=== PATIENT | male | born 1940 | race Caucasian/White ===

== ENCOUNTER → 2018-03-10 | Outpatient (CLI) | payer MEDICARE, MEDICAID ==
[2016-07-28 12:53] VITALS: BMI 27.1
[~2018-03-10] MED LIST: ABILIF5PT PO; ACET-1966 PO; ACET-2031 PO; ACET-2043 PO; ARIP10TA4 PO; ARTO15 OD; ASPI-1471 PO; ASPI-757 PO; BENZ1 PO; CA C1TAB6 PO; CALC-1173 PO; CALC-515 PO; CALC-634 PO; CALC-635 PO; CALC300T5 PO; CEFU250T11 PO; CHOL1CRY4 PO; CIPR-344 PO; CIPR-345 PO; CLOT15CR63 TP; DEXT15DR16 OP; ETOD-1 PO; FLU150 PO; FLUN25SP NS; GABA-549 PO; HYDR-2966 PO; IBUP-56 PO; LAMO200T45 PO; LAMO25TA60 PO; LAMOT150PT PO; LEVO50TA86 PO; LEVO75TA68 PO; LITC450 PO; LOPE1TAB PO; LOPE2CAP88 PO; LOSA100T69 PO; LOSA50TA74 PO; LURA20TA PO; MAG-65 PO; METF-450 PO; METF500T4 PO; MIRT-18 PO; MIRT-25 PO; MOM PO; MULT-865 PO; NIC10R INH; NICO4LOZ35 BC; OMEP-125 PO; OMEP-137 PO; POLY17PO21 PO; POLY17PO25 PO; POLY500P2 MC; PSYL0.5234 PO; SULF-198 PO; TAMS0.4C70 PO; TETR12.52 PO; TRAM-420 PO; TRAZ50TA34 PO; VENL75CA58 PO; ZOLP-360 PO; [UNRECOGNIZED DRUG - CODE] BC; [UNRECOGNIZED DRUG - CODE] PO; [UNRECOGNIZED DRUG - CODE] PO; [UNRECOGNIZED DRUG - CODE] PO; [UNRECOGNIZED DRUG - CODE] PO
== END ==
LOC: ZZSPRING 00:48
DX: R97.20 Elevated prostate specific antigen [PSA] (principal)
CPT/HCPCS: 36415; 84153

== ENCOUNTER 2018-04-24 16:59 | Emergency (ER) | payer MEDICARE, MEDICAID ==
[2016-07-28 12:53] VITALS: Wt 124.7 kg
[~2018-04-24 16:59] MED LIST changes: +POLY17PO11 PO; -POLY17PO21 PO
--- NOTE | 2018-04-24 17:07 | ER Report ---
History and Physical Time Seen By : 17:08 HPI/ROS CHIEF COMPLAINT: Depression HISTORY OF PRESENT ILLNESS: 77-year-old male patient presents to emergency room with complaint of depression. Patient states that he is a resident at [facility]. He states that he has not been sleeping. He states that he is not having any suicidal ideation. Patient states he believes that he needs to be admitted to behavioral health to get his medications changed and given so he can sleep better. I did receive a call and report from the nurse at [facility]. He states that patient was having suicidal ideation. When asked the patient denies this adamantly. He denies having any nausea, vomiting, diarrhea. He states he is not having any pain at this time. REVIEW OF SYSTEMS: Respiratory: No cough, no dyspnea. Cardiovascular: No chest pain, no palpitations. Gastrointestinal: No vomiting, no abdominal pain. Musculoskeletal: No back pain. Allergies: Coded Allergies: codeine (Verified Allergy, Unknown, 08/09/16) Home Meds Active Scripts Calcium Carbonate/Vitamin D3 (CALCIUM 600 + VIT D 400 TABLET) 1 Each Tablet, 1 EACH PO BID, #180 TAB 4 Refills Prov:NELY COLLIER APRN-C 05/30/17 Metformin Hcl (METFORMIN HCL ER) 500 Mg Tab.er.24, 1 TAB PO QHS, #30 TAB 5 Refills Prov:NELY COLLIER APRN-C 02/07/17 Levothyroxine Sodium (LEVOTHYROXINE SODIUM) 50 Mcg Tablet, 50 MCG PO QDAY, #30 TAB 6 Refills Prov:NELY COLLIER APRN-Paul 11/13/16 Lamotrigine (LAMOTRIGINE) 200 Mg Tablet, 1 TAB PO DAILY, #30 TAB 5 Refills Prov:CHANTELL GARLAND MD 10/22/16 Losartan Potassium (LOSARTAN POTASSIUM) 100 Mg Tablet, 1 TAB PO QDAY, #30 TAB 6 Refills Prov:CHANTELL GARLAND MD 08/29/16 Dextran/Hypromellose/Glycerin (TEARS NATURALE FORTE DROPS) 15 Ml Drops, 1 BOTTLE OP PRN, #1 BOT 3 Refills Prov:NELY COLLIER APRN-C 04/10/16 Aspirin (ASPIR 81) 81 Mg Tablet., 1 TAB PO MON,WED,FRI, #36 TAB 1 Refill Prov:MYRNAYASIR SARABIADAVID WYLIE FILTER PRESS PUMPER-C 04/10/16 Omeprazole (OMEPRAZOLE) 20 Mg Tablet.dr, 1 TAB PO FRI,FRI,FRI, #36 CAP 1 Refill Prov:NELY COLLIER DEJAN FILTER PRESS PUMPER-C 04/10/16 Reported Medications Ibuprofen (IBUPROFEN) 200 Mg Tablet, 1-2 TAB PO Q6H PRN for PAIN, TAB 04/24/18 Lurasidone Hcl (LATUDA) 20 Mg Tablet, 20 MG PO DAILY 04/24/18 Escitalopram Oxalate (ESCITALOPRAM OXALATE) 10 Mg Tablet, 10 MG PO QDAY, TAB 04/24/18 Tetrabenazine (XENAZINE) 12.5 Mg Tablet, 12.5 MG PO BID 01/27/17 Tamsulosin Hcl (TAMSULOSIN HCL) 0.4 Mg Cap.er.24h, 0.4 MG PO DAILY, CAP 01/27/17 Acetaminophen (TYLENOL) 325 Mg Tablet, 325-650 MG PO Q6H PRN for PAIN, TAB 08/16/16 Calcium Carbonate (TUMS) 200 Mg Tab.chew, 1000 MG PO Q2H PRN for HEARTBURN, TAB.CHEW 08/16/16 Polyethylene Glycol 3350 (MIRALAX) 17 Gm Powd.pack, 17 GM PO DAILY PRN for CONSTIPATION, PKT 08/16/16 Mirtazapine (REMERON) 30 Mg Tablet, 15 MG PO QHS 07/15/16 Magnesium Hydroxide (MILK OF MAGNESIA) 400 Mg/5 Ml Oral.susp, 15-30 ML PO BID PRN for CONSTIPATION, BOTTLE 07/10/16 Guaifenesin/Dextromethorphan (ROBAFEN-DM SYRUP) 118 Ml Syrup, 5 ML PO Q4-6H PRN for COUGH 07/10/16 Discontinued Reported Medications Aripiprazole (ABILIFY) 5 Mg Tablet, 5 MG PO QDAY, #10 TAB 08/16/16 Aspirin (ASPIRIN) 325 Mg Tablet, 325 MG PO Q6H PRN for PAIN, TAB 07/15/16 Multivitamin (DAILY MULTIPLE VITAMIN) 1 Each Tablet, 1 EACH PO DAILY 07/15/16 Discontinued Scripts Clotrimazole (CLOTRIMAZOLE) 15 Gm Cream..g., 1 ZACHARY TP BID for 10 Days, #1 TUBE 0 Refills Prov:KRIS PALMER DNP, FILTER PRESS PUMPER-BC 09/16/17 Fluconazole (FLUCONAZOLE) 150 Mg Tab, 1 TAB PO ONCE, #1 TAB 0 Refills Prov:KRIS PALMER DNP, FILTER PRESS PUMPER-BC 09/16/17 Past Medical/Surgical History Patient has a past medical history of neuropathy, heart disease, murmur, hypertension, hyperlipidemia, pneumonia, kyphosis, fracture, diabetes, hypothyroidism, depression, suicide attempt x2, basal cell cancer. Patient has a surgical history of cancer removal from lip. Patient has a family medical history of CAD. Reviewed Nurses Notes: Yes Hx Smoking: Yes Smoking Status: Current: Every Day Smoker Exposure to Second Hand Smoke?: Yes Hx Substance Use Disorder: No Hx Alcohol Use: No Constitutional Vital Sign - Last 24 Hours 04/24/18 04/24/18 04/24/18 17:09 17:20 19:29 Temp 99.1 Pulse 68 77 Resp 18 18 B/P (MAP) 138/72 90/58 (69) Pulse Ox 88 90 O2 Delivery Room Air Nasal Cannula O2 Flow Rate 1.0 Physical Exam General Appearance: The patient is alert, has no immediate need for airway protection and no current signs of toxicity. Respiratory: Chest is non tender, lungs are clear to auscultation. Cardiac: regular rate and rhythm Gastrointestinal: Abdomen is soft and non tender, no masses, bowel sounds normal. Musculoskeletal: Neck: Neck is supple and non tender. Extremities have full range of motion and are non tender. Skin: No rashes or lesions. Psych: Patient does not maintain eye contact during conversation, rate of speech is appropriate. DIFFERENTIAL DIAGNOSIS: After history and physical exam differential diagnosis was considered for depression. Medical Decision Making Data Points Result Diagram: 04/24/18 1736 04/24/18 1736 Laboratory Hematology Test 04/24/18 17:36 Red Blood Count 4.88 M/uL (4.00-5.60) Mean Corpuscular Volume 95.5 fL (80.0-96.0) Mean Corpuscular Hemoglobin 33.0 pg (26.0-33.0) Mean Corpuscular Hemoglobin Concent 34.6 g/dL (32.0-36.0) Red Cell Distribution Width 12.8 % (11.5-14.5) Mean Platelet Volume 8.3 fL (7.2-11.1) Neutrophils (%) (Auto) 78.0 % (39.4-72.5) Lymphocytes (%) (Auto) 12.7 % (17.6-49.6) Monocytes (%) (Auto) 5.8 % (4.1-12.4) Eosinophils (%) (Auto) 0.7 % (0.4-6.7) Basophils (%) (Auto) 2.8 % (0.3-1.4) Nucleated RBC Relative Count (auto) 0.0 /100WBC Neutrophils # (Auto) 7.4 K/uL (2.0-7.4) Lymphocytes # (Auto) 1.2 K/uL (1.3-3.6) Monocytes # (Auto) 0.6 K/uL (0.3-1.0) Eosinophils # (Auto) 0.1 K/uL (0.0-0.5) Basophils # (Auto) 0.3 K/uL (0.0-0.1) Nucleated RBC Absolute Count (auto) 0.00 K/uL Sodium Level 136 mmol/L (137-145) Potassium Level 4.1 mmol/L (3.5-5.0) Chloride Level 104 mmol/L (98-107) Carbon Dioxide Level 24 mmol/L (22-30) Blood Urea Nitrogen 21 mg/dl (9-21) Creatinine 1.00 mg/dl (0.66-1.25) Glomerular Filtration Rate Calc > 60.0 Random Glucose 141 mg/dl (75-110) Calcium Level 10.0 mg/dl (8.4-10.2) Magnesium Level 1.7 mg/dl (1.7-2.2) Total Bilirubin 0.7 mg/dl (0.2-1.3) Aspartate Amino Transf (AST/SGOT) 23 U/L (0-35) Alanine Aminotransferase (ALT/SGPT) 32 U/L (0-56) Alkaline Phosphatase 81 U/L (0-126) Total Protein 7.0 g/dl (6.3-8.2) Albumin 3.8 g/dl (3.5-5.0) Salicylates Level 10 mg/L Salicylate Last Dose Date unk Acetaminophen Level < 10 ug/ml Serum Alcohol < 10 mg/dl Chemistry Test 04/24/18 17:36 White Blood Count 9.5 k/uL (4.5-11.0) Red Blood Count 4.88 M/uL (4.00-5.60) Hemoglobin 16.1 g/dL (14.0-18.0) Hematocrit 46.6 % (42.0-52.0) Mean Corpuscular Volume 95.5 fL (80.0-96.0) Mean Corpuscular Hemoglobin 33.0 pg (26.0-33.0) Mean Corpuscular Hemoglobin Concent 34.6 g/dL (32.0-36.0) Red Cell Distribution Width 12.8 % (11.5-14.5) Platelet Count 210 K/uL (150-450) Mean Platelet Volume 8.3 fL (7.2-11.1) Neutrophils (%) (Auto) 78.0 % (39.4-72.5) Lymphocytes (%) (Auto) 12.7 % (17.6-49.6) Monocytes (%) (Auto) 5.8 % (4.1-12.4) Eosinophils (%) (Auto) 0.7 % (0.4-6.7) Basophils (%) (Auto) 2.8 % (0.3-1.4) Nucleated RBC Relative Count (auto) 0.0 /100WBC Neutrophils # (Auto) 7.4 K/uL (2.0-7.4) Lymphocytes # (Auto) 1.2 K/uL (1.3-3.6) Monocytes # (Auto) 0.6 K/uL (0.3-1.0) Eosinophils # (Auto) 0.1 K/uL (0.0-0.5) Basophils # (Auto) 0.3 K/uL (0.0-0.1) Nucleated RBC Absolute Count (auto) 0.00 K/uL Glomerular Filtration Rate Calc > 60.0 Calcium Level 10.0 mg/dl (8.4-10.2) Magnesium Level 1.7 mg/dl (1.7-2.2) Total Bilirubin 0.7 mg/dl (0.2-1.3) Aspartate Amino Transf (AST/SGOT) 23 U/L (0-35) Alanine Aminotransferase (ALT/SGPT) 32 U/L (0-56) Alkaline Phosphatase 81 U/L (0-126) Total Protein 7.0 g/dl (6.3-8.2) Albumin 3.8 g/dl (3.5-5.0) Salicylates Level 10 mg/L Salicylate Last Dose Date unk Acetaminophen Level < 10 ug/ml Serum Alcohol < 10 mg/dl Toxicology Test 04/24/18 17:36 Salicylates Level 10 mg/L Salicylate Last Dose Date unk Acetaminophen Level < 10 ug/ml Serum Alcohol < 10 mg/dl ED Course/Re-evaluation ED Course Patient was admitted to an exam room, history and physical were obtained. Differential diagnoses were considered. On examination lungs are clear, heart was regular, abdomen soft nontender. Patient did struggle with eye contact. Rate of speech is appropriate. He did request to be admitted to behavioral health. Lab work for a behavioral health admission was done. Lab results were unremarkable. I was unable to collect a urine sample. I spoke with Ciarra Carlson, nurse practitioner, I explained that I was unable to get a urine. She did accept the patient for admission to the behavioral health unit. I discussed with the patient who verbalized understanding and agreement with plan. Decision to Disposition Date: Apr 24, 2018 Decision to Disposition Time: 19:06 Depart Departure Latest Vital Signs Vital Signs Date Time Temp Pulse Resp B/P (MAP) Pulse Ox O2 Delivery O2 Flow Rate FiO2 04/24/18 19:29 77 18 90/58 (69) 90 Nasal Cannula 04/24/18 17:20 1.0 04/24/18 17:09 99.1 Impression: Primary Impression: Depression Condition: Condition Unchanged Disposition: XFER TO [facility] Referrals: NELY COLLIER APRN FILTER PRESS PUMPER-C (PCP) Problem Qualifiers Primary Impression: Depression Depression Type: major depressive disorder Major depression recurrence: recurrent Active/Remission status: currently active Major depression episode severity: moderate Qualified Codes: F33.1 - Major depressive disorder, recurrent, moderate AMADA MONTES Apr 24, 2018 17:07
[2018-04-24 17:41] LABS: PLATELET COUNT, AUTOMATED 210 K/uL (150-450)
[2018-04-24] MEDS ORDERED: ESCI10TA8 PO (19:23)
[2018-04-24] MEDS ORDERED: LURA20TA PO (19:23)
[2018-04-24] MEDS ORDERED: IBUP-56 PO (19:23)
[2018-04-24 19:29] VITALS: BP 90/58
== END 2018-04-24 19:55 ==
LOC: ER 17:28
DX: F33.1 Major depressive disorder, recurrent, moderate (principal)
CPT/HCPCS: 36415; 83735; 84443; 85025; 99284; G0480; 80320; 80329; 82040; 82247; 82310; 82374; 82435; 82565; 82947; 84075; 84132; 84155; 84295; 84450; 84460; 84520

== ENCOUNTER 2018-04-24 19:16 | Inpatient (IN) | payer MEDICARE, MEDICAID ==
[2016-07-28 12:53] VITALS: Wt 99.3 kg
[2018-04-24] MEDS ORDERED: IBUP-56 PO (19:23)
[2018-04-24] MEDS ORDERED: ESCI10TA8 PO (19:23)
[2018-04-24] MEDS ORDERED: LURA20TA PO (19:23)
[2018-04-24] MEDS ORDERED: MAG HYD/AL HYD/SIMETH 30ML UDC PO PRN (23:25)
[2018-04-25] MEDS: MIRTAZAPINE 15 MG TAB PO SCH ×2 (01:00→21:17)
[2018-04-25] MEDS: TAMSULOSIN HCL 0.4 MG CAP PO SCH ×2 (01:00→21:17)
[2018-04-25 01:13] VITALS: BP 100/50
[2018-04-25] MEDS: LEVOTHYROXINE SOD 0.05 MG TAB PO SCH (06:26)
[2018-04-25] MEDS: LOSARTAN POTASSIUM 50 MG TAB PO SCH (08:46)
[2018-04-25] MEDS: lamoTRIgine 100 MG TAB PO SCH (08:46)
[2018-04-25] MEDS: CALCIUM CARBONATE/VITAMIN D3 PO SCH ×2 (08:46→16:55)
[2018-04-25] MEDS: ESCITALOPRAM OXALATE 10 MG TAB PO SCH (08:47)
[2018-04-25] MEDS: LURASIDONE 40 MG TAB PO SCH (08:47)
[2018-04-25] MEDS: TETRABENAZINE 12.5 MG SCH ×2 (09:00→21:19)
[2018-04-25 11:25] VITALS: BP 148/78
[2018-04-25] MEDS: ACETAMINOPHEN 325 MG TAB PO PRN ×2 (11:54→15:59)
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
[2018-04-25] MEDS: metFORMIN HCL XR 500 MG TABCR PO SCH (16:55)
[2018-04-26] MEDS: LEVOTHYROXINE SOD 0.05 MG TAB PO SCH (06:29)
[2018-04-26] MEDS: ESCITALOPRAM OXALATE 10 MG TAB PO SCH (08:18)
[2018-04-26] MEDS: lamoTRIgine 100 MG TAB PO SCH (08:18)
[2018-04-26] MEDS: LOSARTAN POTASSIUM 50 MG TAB PO SCH (08:18)
[2018-04-26] MEDS: CALCIUM CARBONATE/VITAMIN D3 PO SCH ×2 (08:18→16:50)
[2018-04-26] MEDS: LURASIDONE 40 MG TAB PO SCH (08:18)
[2018-04-26] MEDS: TETRABENAZINE 12.5 MG SCH ×2 (08:19→20:47)
[2018-04-26 10:30] VITALS: BP 140/69
--- NOTE | 2018-04-26 11:57 | BHS Progress Note ---
BHS - Subjective Progress Notes Subjective "Better. I got a good sleep last night. I think I just need a couple more days rest and my anxiety will be better." Rates depression level a 6, anxiety a 7. Anger 0, Denies SI Suicidal Ideation: None Homicidal Ideation: None [facility] - Objective Physical Exam Vital Signs Vital Signs 04/26/18 10:30 Temp 97.7 Pulse 59 Resp 18 B/P (MAP) 140/69 (92) Pulse Ox 90 O2 Delivery Room Air Muscle Strength and Tone: WNL Gait and Station: Steady [facility] Medications Reviewed: Side Effects, Benefits of Medication, Risks Allergies Reviewed: Yes Mental Status Exam General Appearance: Casual, Good Eye Contact, Cooperative, Polite, Good Interaction; No Tearful, No Psychomotor Agitation, No Psychomotor Retardation; Other (occasional nonvoluntary movements to arm. ) Speech: Clear, Spontaneous, Normal Rate, Normal Rhythm, Normal Volume, Normal Tone Mood: Dysthmic/Depressed, Other (reports anxiety) Affect: Calm; No Tearful, No Agitated Thought Process: Organized, Logical, Goal Directed; No Loose Associations, No Flight of Ideas Thought Content: No Suicidal Ideation (denies), No Homicidal Ideation, No Delusions; Auditory Halllucinations (denies current); No Visual Hallucinations, No Thought Broadcasting, No Ideas of Reference, No Obsessions, No Compulsions Sensorium: Clear Cognition: Alert & Oriented-Person, Alert & Oriented-Place, Alert & Oriented- Time, Ogxyt-Awmpyoic-Mkyckyqrd Memory: Immediate, Recent, Remote Intelligence: Average Insight Judgment: Good [facility] Assessment and Plan [id number] Encounter Date: Apr 26, 2018 [id number]-[id number] Encounter Time: 09:45 [facility] Plan: Admit to Unit, Necessary Precautions, Individual/Group Therapy, Admin/Titrate Meds, Educate Patient Tobacco Medications: Not Appropriate Condition Multpiple Antipsychotics Used: No Problems: (1) Schizoaffective disorder, bipolar type Status: Chronic DAYANA CRUZ NP Apr 26, 2018 11:57
[2018-04-26] MEDS ORDERED: MAGNESIUM HYDROXIDE* 30ML UDCP PO PRN (16:15)
[2018-04-26] MEDS ORDERED: POLYETHYLENE GLYCOL 17 GM PKT PO PRN (16:15)
[2018-04-26] MEDS: metFORMIN HCL XR 500 MG TABCR PO SCH (16:50)
[2018-04-26] MEDS: ACETAMINOPHEN 325 MG TAB PO PRN (19:15)
[2018-04-26 19:24] VITALS: BP 151/92
[2018-04-26] MEDS: TAMSULOSIN HCL 0.4 MG CAP PO SCH (20:47)
[2018-04-26] MEDS: MIRTAZAPINE 15 MG TAB PO SCH (20:47)
[2018-04-27 05:50] VITALS: BP 123/57
[2018-04-27] MEDS: LEVOTHYROXINE SOD 0.05 MG TAB PO SCH (05:50)
[2018-04-27] MEDS ORDERED: PANTOPRAZOLE SOD 20 MG TABEC PO SCH (06:00)
[2018-04-27] MEDS: ACETAMINOPHEN 325 MG TAB PO PRN (06:39)
[2018-04-27] MEDS: TETRABENAZINE 12.5 MG SCH ×2 (08:16→20:42)
[2018-04-27] MEDS: CALCIUM CARBONATE/VITAMIN D3 PO SCH ×2 (08:17→17:22)
[2018-04-27] MEDS: lamoTRIgine 100 MG TAB PO SCH (08:17)
[2018-04-27] MEDS: ESCITALOPRAM OXALATE 10 MG TAB PO SCH (08:17)
[2018-04-27] MEDS: LOSARTAN POTASSIUM 50 MG TAB PO SCH (08:17)
[2018-04-27] MEDS: LURASIDONE 40 MG TAB PO SCH (08:17)
[2018-04-27 08:40] VITALS: BP 137/56
[2018-04-27] MEDS ORDERED: ASPIRIN 81 MG ENTERIC COATED PO SCH (09:00)
[2018-04-27] MEDS: ARIPiprazole 10 MG TAB PO SCH (12:55)
--- NOTE | 2018-04-27 13:08 | BHS Progress Note ---
S - Subjective Progress Notes Subjective Patient reports is depression and heightened anxiety are resolving somewhat, and he states he wants to return to using Abilify, and stop Latuda. Patient reports that this is "where his problems started, regarding his decline in mood after stopping Abilify for switch to Latuda through outpatient providers. Patient is capable of manipulating to some degree, and may be on the unit for more of a break from his normal routine, will continue to evaluate. Will stop Latuda, and restart Abilify at 5mg, which he was on before. Suicidal Ideation: None Homicidal Ideation: None [facility] - Objective Physical Exam Vital Signs Hematology Test 04/25/18 08:46 Urine Color Yellow Urine Clarity Clear Urine pH 5.0 pH (4.8-9.5) Urine Specific [place] 1.020 Urine Protein Negative mg/dL (NEGATIVE) Urine Glucose (UA) Negative mg/dL (NEGATIVE) Urine Ketones Negative mg/dL (NEGATIVE) Urine Blood Negative (NEGATIVE) Urine Nitrite Negative (NEGATIVE) Urine Bilirubin Negative (NEGATIVE) Urine Urobilinogen Negative mg/dL (0.2-1.9) Urine Leukocyte Esterase Moderate (NEGATIVE) Urine RBC 1 /HPF (0-2/HPF) Urine WBC 23 /HPF (0-5/HPF) Urine Squamous Epithelial Cells Moderate /LPF (</=FEW) Urine Bacteria Negative /HPF (NONE-FEW) Urine Hyaline Casts Few /LPF (NONE-FEW) Urine Mucus Few /HPF (NONE-FEW) Urine Opiates Screen Negative Urine Barbiturates Screen Negative Ur Tricyclic Antidepressants Screen Negative Urine Phencyclidine Screen Negative Urine Amphetamines Screen Negative Urine Benzodiazepines Screen Negative Urine Cocaine Screen Negative Urine Cannabinoids Screen Negative Chemistry Test 04/25/18 08:46 Urine Color Yellow Urine Clarity Clear Urine pH 5.0 pH (4.8-9.5) Urine Specific [place] 1.020 Urine Protein Negative mg/dL (NEGATIVE) Urine Glucose (UA) Negative mg/dL (NEGATIVE) Urine Ketones Negative mg/dL (NEGATIVE) Urine Blood Negative (NEGATIVE) Urine Nitrite Negative (NEGATIVE) Urine Bilirubin Negative (NEGATIVE) Urine Urobilinogen Negative mg/dL (0.2-1.9) Urine Leukocyte Esterase Moderate (NEGATIVE) Urine RBC 1 /HPF (0-2/HPF) Urine WBC 23 /HPF (0-5/HPF) Urine Squamous Epithelial Cells Moderate /LPF (</=FEW) Urine Bacteria Negative /HPF (NONE-FEW) Urine Hyaline Casts Few /LPF (NONE-FEW) Urine Mucus Few /HPF (NONE-FEW) Urine Opiates Screen Negative Urine Barbiturates Screen Negative Ur Tricyclic Antidepressants Screen Negative Urine Phencyclidine Screen Negative Urine Amphetamines Screen Negative Urine Benzodiazepines Screen Negative Urine Cocaine Screen Negative Urine Cannabinoids Screen Negative Toxicology Test 04/25/18 08:46 Urine Opiates Screen Negative Urine Barbiturates Screen Negative Ur Tricyclic Antidepressants Screen Negative Urine Phencyclidine Screen Negative Urine Amphetamines Screen Negative Urine Benzodiazepines Screen Negative Urine Cocaine Screen Negative Urine Cannabinoids Screen Negative Urinalysis Test 04/25/18 08:46 Urine Color Yellow Urine Clarity Clear Urine pH 5.0 pH (4.8-9.5) Urine Specific [place] 1.020 Urine Protein Negative mg/dL (NEGATIVE) Urine Glucose (UA) Negative mg/dL (NEGATIVE) Urine Ketones Negative mg/dL (NEGATIVE) Urine Blood Negative (NEGATIVE) Urine Nitrite Negative (NEGATIVE) Urine Bilirubin Negative (NEGATIVE) Urine Urobilinogen Negative mg/dL (0.2-1.9) Urine Leukocyte Esterase Moderate (NEGATIVE) Urine RBC 1 /HPF (0-2/HPF) Urine WBC 23 /HPF (0-5/HPF) Urine Squamous Epithelial Cells Moderate /LPF (</=FEW) Urine Bacteria Negative /HPF (NONE-FEW) Urine Hyaline Casts Few /LPF (NONE-FEW) Urine Mucus Few /HPF (NONE-FEW) Vital Signs Date Time Temp Pulse Resp B/P (MAP) Pulse Ox O2 Delivery O2 Flow Rate FiO2 04/27/18 08:40 97.7 50 16 137/56 (83) 93 Room Air Muscle Strength and Tone: WNL Gait and Station: Steady [facility] Medications Reviewed: Side Effects, Benefits of Medication, Risks Allergies Reviewed: Yes Mental Status Exam General Appearance: Casual, Well Groomed, Good Eye Contact, Cooperative, Polite, Good Interaction; No Tearful, No Psychomotor Agitation, No Psychomotor Retardation, No Bizarre Mannerisms, No Tics; Other (occasional nonvoluntary movements to arm. ) Speech: Clear, Spontaneous, Normal Rate, Normal Rhythm, Normal Volume, Normal Tone Mood: Dysthmic/Depressed, Other (reports anxiety) Affect: Calm, Neutral; No Withdrawn, No Tearful, No Agitated Thought Process: Organized, Logical, Goal Directed; No Loose Associations, No Flight of Ideas Thought Content: No Suicidal Ideation (denies), No Homicidal Ideation, No Delusions; Auditory Halllucinations (denies current); No Visual Hallucinations, No Thought Broadcasting, No Ideas of Reference, No Obsessions, No Compulsions Sensorium: Clear Cognition: Alert & Oriented-Person, Alert & Oriented-Place, Alert & Oriented- Time, Vafyh-Yznrhubn-Ekdhhfofv Memory: Immediate, Recent, Remote Intelligence: Average Insight Judgment: Fair [facility] Assessment and Plan [id number] Encounter Date: Apr 27, 2018 Madn-[id number] Encounter Time: 13:00 [facility] Plan: Admit to Unit, Necessary Precautions, Individual/Group Therapy, Admin/Titrate Meds, Educate Patient Tobacco Medications: Not Appropriate Condition Multpiple Antipsychotics Used: No Problems: (1) Schizoaffective disorder, bipolar type Status: Chronic Condition 1. continue treatment. 2. start pushpa, 3. stop RONDA Pa MD Apr 27, 2018 13:08
[2018-04-27] MEDS: metFORMIN HCL XR 500 MG TABCR PO SCH (17:22)
[2018-04-27] MEDS: TAMSULOSIN HCL 0.4 MG CAP PO SCH (20:42)
[2018-04-27] MEDS: MIRTAZAPINE 15 MG TAB PO SCH (20:42)
[2018-04-27 22:12] VITALS: BP 167/77
[2018-04-28] MEDS: LEVOTHYROXINE SOD 0.05 MG TAB PO SCH (06:00)
[2018-04-28 06:24] VITALS: BP 159/78
[2018-04-28 08:00] VITALS: BP 162/86
[2018-04-28] MEDS: LOSARTAN POTASSIUM 50 MG TAB PO SCH (08:40)
[2018-04-28] MEDS: ARIPiprazole 10 MG TAB PO SCH (08:40)
[2018-04-28] MEDS: CALCIUM CARBONATE/VITAMIN D3 PO SCH (08:40)
[2018-04-28] MEDS: lamoTRIgine 100 MG TAB PO SCH (08:41)
[2018-04-28] MEDS: ESCITALOPRAM OXALATE 10 MG TAB PO SCH (08:41)
[2018-04-28] MEDS: TETRABENAZINE 12.5 MG SCH (08:41)
[2018-04-28] MEDS ORDERED: ABILIF5PT PO (09:48)
--- NOTE | 2018-04-30 04:22 | SCHAAF DISCHARGE ---
DATE OF ADMISSION: April 24, 2018 DATE OF DISCHARGE: April 28, 2018 ATTENDING PHYSICIAN Ez Castellon MD Patient was seen at approximately 0930 hours on 28 April 2018 for note concerning this dictation. FINAL DIAGNOSIS Schizoaffective disorder, bipolar type. Patient known to have supportive family members and supportive living through [facility]. REASON FOR ADMISSION This is a fairly well-known 77-year-old male who was last on the unit here a little over one year ago under similar circumstances. Patient overall continues to do fairly well, where he has been a long-term resident at [facility]. Patient's admission may represent more of an effort for patient to get a change of scenery than anything else. Patient engaging in some obvious manipulative behavior. Patient, for instance, telling one provider that saw him this admission that he wants to stay on Latuda rather than Abilify. Patient then telling this provider that he wants to stop Latuda and go back to Abilify, as this is when "all my problems started." Patient noted to be recently changed from Abilify to Latuda, both remaining in low dose, by outpatient providers in the [place]. Patient at times not wanting to participate in therapy, and patient fairly soon after admission wanting to return to [facility], stating that he was doing much better. Patient overall remained very cooperative throughout his stay. PHYSICAL EXAMINATION Please see emergency room note. Notable for cooperative 77-year-old male, verbalizing depression symptoms. Please look at ER notes and history and physical for physical exam. A 77-year-old male in no acute medical distress. Vital signs at the time of admission: Temperature 99.1, pulse 68, respiratory rate 18, blood pressure 138/72 and pulse oximetry 88% and low on room air. Vital signs at the time of discharge: Temperature 97.4, pulse 62, respiratory rate 18, blood pressure 162/86 and pulse oximetry 91% on room air. LABORATORY DATA On 04/25/2018, urinalysis did show moderate leukocyte esterase, some white blood cells present with squamous epithelial cells. Microbiology of urine showed no growth present. Toxicology screen was negative. CBC largely unremarkable. CMP largely unremarkable as well. TSH 1.27. MENTAL STATUS EXAMINATION AT TIME OF DISCHARGE GENERAL APPEARANCE, BEHAVIOR AND ATTITUDE: This is a cooperative, well-known 77-year-old male. No bizarre mannerisms or tics. No psychomotor agitation or retardation. Patient interacting well. No periods of tearfulness. SPEECH: Within normal limits. Regular rate, rhythm, volume and tone. MOOD: Described as improved. . AFFECT: Full and bright at times, mood-congruent overall. THOUGHT PROCESSES: Goal-directed. Patient deciding he wants to return to [facility]. Fairly logical. No loose associations or flight of ideas. THOUGHT CONTENT: Free of auditory or visual hallucinations, ideas of reference, thought broadcastings, delusions, obsessions or compulsions. Patient adamantly denying suicidal or homicidal ideation. SENSORIUM: Clear. COGNITION: Alert and oriented to person, place, time and situation. MEMORY: Immediate, recent and remote estimated intact. INTELLIGENCE: Average, based on interview. INSIGHT AND JUDGMENT: Considered grossly intact and appropriate for ongoing outpatient management through [facility]. RESULTS OF TESTING Imaging: None. Laboratory data: See above. CONSULTATIONS None. TREATMENT Patient received medications, participated in individual and group therapy. HOSPITAL COURSE This is becoming a well-known 77-year-old male who presents from time to time with some depressive symptoms. Patient may be overexaggerating these symptoms at times, but remains calm and polite on the unit and takes a somewhat active role in his treatment. Patient quickly recovering from verbalizing depressive symptoms, and discharged to home. CONDITION OF PATIENT ON DISCHARGE Stable. Considered a minimal risk to himself or others, and appropriate for ongoing care at [facility]. DISPOSITION The patient was discharged to [facility]. He would follow up with continued therapy and medications managed through the [place] and [facility], including [facility] program. Given the crisis line should symptoms return. Patient would continue home medications as prior to admission, with the exception that Latuda would be stopped and Abilify would be reintroduced at 5 mg p.o. every a.m. Discharge medications included Tylenol 325 to 650 mg every six hours as needed for pain; Abilify 5 mg every a.m.; aspirin 81 mg on Friday, Friday, and Friday; TUMS 1000 mg orally every two hours as needed for heartburn; calcium carbonate and vitamin D3 tablet twice a day; Dextran tears as needed; Lexapro 10 mg daily; guaifenesin cough syrup every four to six hours as needed; ibuprofen every six hours as needed for pain; lamotrigine 200 mg, one tablet daily; levothyroxine 50 mcg daily; losartan potassium 100 mg daily; milk of magnesia as needed for constipation; metformin 500 mg extended release, one tablet at bedtime; mirtazapine 15 mg at bedtime; omeprazole 20 mg, one tablet Friday/Friday/Friday; MiraLAX 17 g daily as needed for constipation; tamsulosin 0.4 mg daily, and tetrabenazine 12.5 mg twice a day. Patient would stop Latuda and call crisis line should symptoms return. The risks, benefits and alternatives of the above discharge plan were discussed. Informed consent was given to proceed with the above discharge plan by this patient, patient's family, and [facility] staff. LANDEN
== END 2018-04-28 11:33 | disposition home or self-care (01) | DRG 885 ==
LOC: BHS 19:16
PROVIDERS: ADMIT Registered Nurse Psychiatric/Mental Health, Adult; ATTEND Registered Nurse Psychiatric/Mental Health, Adult
DX: F25.0 Schizoaffective disorder, bipolar type (principal); R45.851 Suicidal ideations; F17.210 Nicotine dependence, cigarettes, uncomplicated; Z91.5 Personal history of self-harm
CPT/HCPCS: 36415; 80305; 80320; 80329; 81001; 82040; 82247; 82310; 82374; 82435; 82565; 82947; 83735; 84075; 84132; 84155; 84295; 84443; 84450; 84460; 84520; 85025; 99284

== ENCOUNTER → 2018-10-20 | Outpatient (CLI) | payer MEDICARE, MEDICAID ==
[2016-07-28 12:53] VITALS: BMI 27.1
[~2018-10-20] MED LIST changes: +ACET-2146 PO; +ALB18R INH; +ESCI10TA8 PO; +FINA5TAB67 PO; +GUAI400T18 PO; -LAMO25TA60 PO; +LAMO25TA68 PO; +LOPE2CAP15 PO; -LOSA100T69 PO; +LOSA100T75 PO; -LOSA50TA74 PO; +LOSA50TA80 PO; +MIRT7.5T2 PO; +NICO-306 BC
== END ==
LOC: ZZSPRING 01:14
PROVIDERS: ATTEND Family Medicine
DX: E03.9 Hypothyroidism, unspecified (principal); E11.9 Type 2 diabetes mellitus without complications; I10 Essential (primary) hypertension
CPT/HCPCS: 36415; 82040; 82247; 82310; 82374; 82435; 82565; 82947; 83036; 84075; 84132; 84155; 84295; 84443; 84450; 84460; 84520; 85027